=== PATIENT | female | born 1945 | race Caucasian/White ===

== ENCOUNTER 2016-12-08 21:57 | Emergency (ER) | payer OTHER ==
--- NOTE | ~2016-12-08 | CR72 ---
[facility] A Service of [facility] & [facility] RADIOLOGY TEXT RESULTS PATIENT: LLOYD GUZMAN LOCATION: [facility] : 47 UNIT #: [id number] AGE: [address]: Nacho Worley MD SEX: F ORDER DR: [id number] [facility] [address] [place], [place] [address] [id number] MR#: [id number] Acc #: [id number] NAME: LLOYD GUZMAN. : 1945 SEX: F STUDY DATE/TIME: 12/08/2016 21:21 UNIT: [facility] ROOM: STUDY DESCRIPTION: CR Chest Single View Portable Attending Physician: Nacho Worley M.D. Ordering Physician: Sinan Costello M.D. Primary Care Physician: Primary Care Physician No MEDICAL IMAGING REPORT This report is preliminary unless electronic signature is present EXAM Portable chest, 12/08/2016 HISTORY Mid chest pain, generalized weakness and atrial fibrillation beginning today. Benign essential hypertension. FINDINGS A single AP portable view of the chest shows both lungs to be clear. The heart is normal in size. The mediastinal contour is normal. No significant bone abnormalities are seen. IMPRESSION Normal portable chest. Dictated by... Eduard Darnell M.D. THIS IS AN ELECTRONICALLY VERIFIED REPORT Eduard Darnell M.D. at 12/09/2016 10:56 AM REE/waqas TD: 12/09/2016 05:17 JOB #: [id number] MEDICAL IMAGING REPORT COPY
--- NOTE | ~2016-12-08 | EKG ---
PATIENT: LLOYD GUZMAN UNIT #: [id number] Ventricular Rate: 74 BPM Atrial Rate: 74 BPM P-R Interval: 158 ms QRS Duration: 92 ms Q-T Interval: 404 ms QTC Calculation(Bezet): 448 ms P [place]: 49 degrees Calculated R [place]: 4 degrees Calculated T [place]: 38 degrees Diagnosis Line: Normal sinus rhythm Diagnosis Line: Normal ECG Diagnosis Line: When compared with ECG of 17-JUL-2009 14:24, Diagnosis Line: No significant change was found Diagnosis Line: Confirmed by CHIQUI ROSS MD ([id number]) on 12/09/2016 Diagnosis Line: 7:32:24 PM INTERPRETING MD: CODY GAVIRIA
[2016-12-08 21:04] LABS: BASOPHIL# 0.1 X10e3 (0-0.3); BASOPHIL% 0.7 % (0-2.5); EOSINOPHIL# 0.1 X10e3 (0-0.7); EOSINOPHIL% 1.6 % (0.0-7.0); HEMATOCRIT 38.4 % (35.0-45.0); HEMOGLOBIN 12.5 gm/dL (12.0-16.0); LYMPHOCYTE# 3.4 X10e3 (1.0-3.5); LYMPHOCYTE% 37.9 % (17.0-45.0); MEAN CELL VOLUME 86.3 FL (83-96); MEAN CORPUSCULAR HEMOGLOBIN 28.1 PG (28-34); MEAN CORPUSCULAR HGB CONC 32.6 g/dL (30-36); MONOCYTE# 0.7 X10e3 (0-1.0); MONOCYTE% 7.3 % (3.0-12.0); NEUTROPHIL# 4.7 X10e3 (1.5-7.1); NEUTROPHIL% 52.5 % (40-75); PLATELET COUNT 265 X10e3 (140-420); RED BLOOD COUNT 4.45 X10e (3.90-5.30)
[2016-12-08 21:06] LABS: DIFF IND NO
[2016-12-08 21:38] LABS: ALBUMIN SERUM 3.9 g/dL (3.5-5.0); ALKALINE PHOSPHATASE 36 U/L (32-92); ALT (SGPT) 18 U/L (10-40); AST (SGOT) 20 U/L (10-42); BILIRUBIN,TOTAL 0.4 mg/dL (0.2-2.0); BLOOD UREA NITROGEN 16 mg/dL (9-23); BUN/CREATININE RATIO 17.77; CALCIUM SERUM 8.8 mg/dL (8.4-10.2); CARBON DIOXIDE 24 mmol/L (22-31); CHLORIDE 109 mmol/L (100-111); CREATININE SERUM 0.9 mg/dL (0.6-1.4); GLOM FILT RATE Estimated ABOVE60 mL/min (>60); GLUCOSE FASTING 144 mg/dL (70-110); SODIUM 141 mmol/L (135-145)
[2016-12-08 21:39] LABS: BILIRUBIN, DIRECT 0.1 mg/dL (0.0-0.2); BILIRUBIN,INDIRECT 0.3 mg/dL (0.0-0.9)
[~2016-12-08 21:57] MED LIST: ASPIRIN PO; CHROMIUM PICOLINATE PO; CODEINE PO; COUMADIN PO; DEPOMEDROL; GLUCOPHAGE XR500 MG PO; LIPITOR PO; LOPRESSOR PO; METFORMIN PO; NASACORT AQ16.5 GM; SOMA COMPOUND1 UDTAB PO; SYNTHROID PO; TORADOL10 MG PO; TRICOR PO; VICODIN 5/500 T1 TAB PO; ZANTAC PO; ZESTORETIC 10/11 TAB PO
[2016-12-08 22:14] LABS: POC - CKMB <1.0 ng/mL (0.0-7.9); POC - TROPONIN <0.05 ng/mL (<=0.05)
[2016-12-08 22:39] LABS: PARTIAL THROMBOPLASTIN TIME 35.7 SECONDS (23.5-31.3); PROTHROMBIN TIME (PATIENT) 43.9 SECONDS (9.6-11.5)
[2016-12-08] MEDS ORDERED: LISINOPRIL-HCTZ1 T19 PO (22:56)
[2016-12-08] MEDS ORDERED: FENOFIBRATE145 M1 PO (22:56)
[2016-12-08] MEDS ORDERED: COUMADIN5 MG PO (22:56)
[2016-12-08] MEDS ORDERED: ASPIRIN81 MG PO (22:57)
[2016-12-08] MEDS ORDERED: PRAVASTATIN SOD40 MG PO (22:57)
[2016-12-08] MEDS ORDERED: OMEGA 3 FISH OI1 CAP PO (22:58)
[2016-12-08] MEDS ORDERED: SYNTHROID PO (22:59)
[2016-12-08] MEDS ORDERED: GLUCOPHAGE500 M1 PO (22:59)
[2016-12-08] MEDS ORDERED: SOTALOL AF120 M1 PO (22:59)
[2016-12-08] MEDS ORDERED: RANITIDINE HCL150 M1 PO (23:00)
[2016-12-08] MEDS ORDERED: VERAMYST10 GM (23:00)
[2016-12-08] MEDS ORDERED: CHROMIUM PICO400 MCG PO (23:01)
[2016-12-09 00:23] LABS: POC - CKMB 1.1 ng/mL (0.0-7.9); POC - TROPONIN <0.05 ng/mL (<=0.05)
== END 2016-12-09 01:46 | disposition home or self-care (01) ==
LOC: CED 21:57
PROVIDERS: Emergency Medicine
DX: R07.9 Chest pain, unspecified (principal); R00.2 Palpitations; E78.5 Hyperlipidemia, unspecified; I10 Essential (primary) hypertension; E11.9 Type 2 diabetes mellitus without complications; Z88.8 Allergy status to other drugs, medicaments and biological substances; Z79.899 Other long term (current) drug therapy
CPT/HCPCS: 36415; 71010; 80048; 80076; 82553; 84484; 85025; 85610; 85730; 93005; 99284